=== PATIENT | male | born 1970 | race Caucasian/White ===

== ENCOUNTER 2021-03-14 12:18 | Outpatient (REF) | payer OTHER, SELFPAY ==
[2021-03-14 14:38] LABS: Alanine Aminotransferase 30 U/L (0-40); Albumin Level 4.8 g/dL (3.5-5.0); Alkaline Phosphatase 59 U/L (39-117); Anion Gap 14 (12-20); Aspartate Amino Transferase 20 U/L (5-37); Bilirubin Total 0.5 mg/dL (0.0-1.0); Blood Urea Nitrogen 15 mg/dL (9-16); Calcium 9.9 mg/dL (8.4-10.2); Carbon Dioxide 26 mmol/L (22-29); Chloride 105 mmol/L (96-108); Cholesterol 224 mg/dL; Estimated Glomerular Filt Rate > 60; Glucose Fasting 98 mg/dL (60-99); HDL Cholesterol 40 mg/dL; LDL Cholesterol Calculated 134 mg/dl; Potassium 4.4 mmol/L (3.3-5.1); Sodium 141 mmol/L (135-145); Total Protein 7.2 g/dL (6.5-8.0); Triglycerides 253 mg/dL
[2021-03-14 14:40] LABS: Prostate Specific Antigen Scr 0.49 ng/mL (<0.05-4.0); TSH reflex Free T4 1.06 uIU/mL (0.32-4.0)
== END 2021-03-14 12:19 | disposition home or self-care (01) ==
LOC: HO.HMGCLDS 12:18
PROVIDERS: PCP Nurse Practitioner Family; Visit Provider Nurse Practitioner Family
DX: Z00.00 Encounter for general adult medical examination without abnormal findings (principal); Z12.5 Encounter for screening for malignant neoplasm of prostate
CPT/HCPCS: 36415; 80053; 80061; 84153; 84443

== ENCOUNTER 2022-12-04 14:56 | Outpatient (AMB) | payer OTHER, SELFPAY ==
--- NOTE | 2022-12-04 14:58 | A.OFFVIS_ITS ---
Intake Vital Signs 12/04/22 14:59 Height 5 ft 8 in Weight 275 lb BMI 41.8 BP 139/76 Blood Pressure Location Rt brachial Position Sitting Pulse 82 Intake Visit Reasons: Colonoscopy screening Intake Note: Patient presents to in office visit today as new patient for colonoscopy screening. CC: Patient denies having any GI issues today. 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 He is referred by Rashi Tran of [facility] primary care. PMX High cholesterol Right knee pain and swelling Chronic back problems arthralgias * SURGICAL HISTORY Wrist surgery for ulnar tendonopathy Tonsil and adenoids L4-L5 back surgery * ALLERGIES: NKDA * [place] LABS: none since 2020 TODAY'S VISIT This is his first colonoscopy. He denies bowel or upper GI pronblms. There are no prior problems with anesthesia or sedation. He has a history of a positive PPD and positive but no active respiratory problems. He denies any respiratory or cardiac problems. He is unsure of his FHX his father had multiple health problems and he will be sending me documents. [facility] Surgical History H/O wrist surgery History of back surgery Hx of tonsillectomy Family History Mother Throat cancer Father Lupus Heart disease Cancer Social History Housing: House Patient Tobacco Use Status: Former Tobacco user Years Smoked: 35 years ago e-Cigarette/Vaping Use: Never Used Second Hand Smoke Exposure: No service: Yes Current occupational status: retired Cognitive needs: No Hearing needs: No Vision needs: No Review of Systems Const Denies fatigue, Denies fever(s), Denies night sweats, Denies poor appetite and Denies weight loss ENT Reports Normal hearing present, Denies dysphagia, Denies odynophagia, Denies throat swelling and Denies tongue swelling Card Reports no additional complaints Resp Reports cough GI Denies abdominal pain, Denies melena, Denies bloating, Denies hematochezia, Denies constipation, Denies GI cramping, Denies dysphagia, Denies excessive flatus, Denies early satiety, Denies heartburn, Denies diarrhea, Denies nausea, Denies odynophagia, Denies vomiting and Denies hematemesis Musc Reports back pain, Reports myalgias, Reports arthralgias and Reports stiffness Skin/Breast Denies pruritus, Denies lesions, Denies rash and Denies jaundice Neuro Reports Normal hearing present and Denies Abnormal speech present Endo Denies fatigue Aller/Immun Denies throat swelling and Denies tongue swelling Physical Exam Vital Signs: Last Vital Signs Pulse 82 12/04/22 14:59 BP 139/76 12/04/22 14:59 BMI result Body Mass Index 41.8 Const General: cooperative, no acute distress, well developed and well groomed Nutritional Appearance: well nourished and obese morbidly obese Orientation/consciousness: oriented to person, oriented to place and oriented to time Limitations: No language barrier HEENT Head: Yes normocephalic and Yes atraumatic Eyes General: appearance normal, both eyes and all related structures Pupils: Equal, round and reactive pupils present Neck Neck: Yes normal visual inspection and Yes no lymphadenopathy Thyroid: Thyroid normal Resp Effort & Inspection: normal respiratory effort and able to speak in complete sentences Auscultation: clear to auscultation bilaterally Cardio Rate: regular rate Rhythm: regular rhythm Heart sounds: Normal, physiologic split S2 sound present Peripheral pulses: radial pulses present and posterior tibial pulses present GI Inspection: No distended, Yes Abdominal panniculus present, Yes obesity and No scar Palpation (GI): Soft to palpation, nontender, no guarding, not rigid and No hepatosplenomegaly present Percussion: Yes normal to percussion Auscultation: normal bowel sounds Rectal Exam - Male: Yes deferred Skin General skin exam: no rashes or lesions noted, turgor normal, skin not dry, no jaundice, No spider nevi and no striae Rashes: no rashes Nails: normal Neuro General: oriented to person, oriented to place and oriented to time Cranial nerves: Yes Equal, round and reactive pupils present and Yes Normal hearing present Speech: No Abnormal speech present Extrem General: Yes normal to inspection, No clubbing, No cyanosis and No edema Psych Appearance: grossly normal and well kempt Mental Status: mental status grossly normal Speech and movement: Normal speech and movement present Affect: normal affect Attitude: cooperative Thought process: Normal thought process present and not confabulating Thought content: Normal thought content present Insight: Limited insight present (Psych) Judgement: Limited judgement present (Psych) Assessment & Plan Assessment & Plan (1) Pre-op examination: Code(s): Z01.818 - Encounter for other preprocedural examination Plan: This is his first colonoscopy. He denies bowel or upper GI pronblms. There are no prior problems with anesthesia or sedation. He has a history of a positive PPD and positive but no active respiratory problems. He denies any respiratory or cardiac problems. He is unsure of his FHX his father had multiple health problems and he will be sending me documents. Orders: Orders Comprehensive Met. Panel 12/04/22 Z01.818 - Encounter for other preprocedural examination Complete Blood Count Auto Diff 12/04/22 Z01.818 - Encounter for other preprocedural examination Colonoscopy - GI Use Only 12/04/22 Medications: New sod sulf-pot chloride-mag sulf 1.479-0.188- 0.225 gram (Sutab) PO PER PKG DIR 24 tabs 0RF Z01.818 - Encounter for other preprocedural examination Coding Level of Care Code New Pt Level 3 (19132) Diagnoses Pre-op examination Z01.818
[2022-12-04 14:59] VITALS: BP 139/76; PULSE 82; BMI 41.8
== END 2022-12-04 15:41 | disposition home or self-care (01) ==
PROVIDERS: PCP Nurse Practitioner Family; Visit Provider Nurse Practitioner
DX: Z01.818 Encounter for other preprocedural examination (principal); Z12.11 Encounter for screening for malignant neoplasm of colon
CPT/HCPCS: 99203; S0285

== ENCOUNTER → 2022-12-04 14:56 | Outpatient (BNVA) | payer OTHER, SELFPAY | PROVIDERS: PCP Nurse Practitioner Family; Visit Provider Nurse Practitioner ==

== ENCOUNTER 2022-12-06 08:50 | Outpatient (REF) | payer OTHER, SELFPAY | END 2022-12-06 08:51 | disposition home or self-care (01) | LOC: HO.MRI 08:50 | PROVIDERS: Visit Provider Nurse Practitioner Family | DX: Z13.89 Encounter for screening for other disorder (principal) ==

== ENCOUNTER 2023-01-15 09:44 | Outpatient (REF) | payer OTHER, MEDICARE, SELFPAY | END 2023-01-15 09:45 | disposition home or self-care (01) | LOC: HO.HOSX 09:44 | PROVIDERS: Visit Provider Orthopaedic Surgery | DX: M25.561 Pain in right knee (principal) | CPT/HCPCS: 73562; 99202 ==

== ENCOUNTER 2023-01-15 12:53 | Outpatient (AMB) | payer OTHER, SELFPAY ==
--- NOTE | 2023-01-15 13:16 | MHC.OFFVIS ---
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 The patient states that he injured his right knee approximately 2 years ago while skiing. He twisted his knee and had acute onset of pain. Since that time his symptoms have gotten worse in spite of continued non operative treatments. He has done physical therapy for 12 weeks over the last 6 months which aggravated his pain. He has also tried Tylenol and anti-inflammatory medicines which gave him minimal relief. He has had injections in the past which gave him no relief. The patient states that his right knee will give out several times per day. Allergies No Known Allergies Allergy (Verified 01/15/23 13:25) Medication List - Last Reconciled 01/15/23 by Nehemias Freire MD albuterol sulfate 90 mcg/actuation 2 puffs inhalation Q6H PRN 30 days sod sulf-pot chloride-mag sulf 1.479-0.188- 0.225 gram (Sutab) PO PER PKG DIR PFSH Surgical History H/O wrist surgery History of back surgery Hx of tonsillectomy Family History Mother Throat cancer Father Lupus Heart disease Cancer Social History Housing: House Patient Tobacco Use Status: Former Tobacco user Years Smoked: 35 years ago e-Cigarette/Vaping Use: Never Used Second Hand Smoke Exposure: No service: Yes Current occupational status: retired Cognitive needs: No Hearing needs: No Vision needs: No Physical Exam Vital Signs: BMI result Body Mass Index 41.8 Const Other: Well-nourished well-developed very friendly male awake alert and oriented x3 in no acute distress Extrem Other: Bilateral lower extremity examination shows good capillary refill, no skin lesions noted, normal sensation light touch Right knee examination shows a minimal effusion, minimal crepitus with range of motion, tenderness along his medial joint line, positive Stacey's test, no instability Results Reviewed Results Reviewed: X-rays of the patient's right knee show mild diffuse joint space narrowing, no acute bony abnormalities MRI of the patient's right knee shows mild diffuse degenerative changes as well as a tear of the medial meniscus and thickened plica Assessment & Plan Assessment & Plan (1) Right knee pain: Code(s): M25.561 - Pain in right knee Plan Mr. Ames presents with progressively worsening right knee pain mechanical symptoms due to early degenerative joint disease as well as a tear of his medial meniscus and plica syndrome. I had a lengthy discussion with the patient regarding the treatment options. At this point he has failed continued non operative treatments. The risks and benefits of right knee arthroscopic surgery were discussed at length with the patient. The patient wishes to proceed with surgery. He does understand that he may not get complete relief of his symptoms depending on the severity of his degenerative changes. Surgery will most likely involve right knee diagnostic arthroscopy with arthroscopic partial medial meniscectomy. I will have my office contact the patient to pick a surgery date. He will follow-up as instructed. Feel free to call me at any time should questions regarding his orthopedic management arise. Thank you very much for asking me to see this very friendly gentleman. I spent 22 minutes in reviewing the patient's records and imaging studies, seeing the patient and documenting in the medical record. Orders: Orders XR knee RT 3V 01/15/23 M25.561 - Pain in right knee Coding Level of Care Code New Pt Level 2 (28578) Diagnoses Right knee pain M25.561
[2023-01-15 13:17] VITALS: BMI 41.8
== END 2023-01-15 13:51 | disposition home or self-care (01) ==
PROVIDERS: PCP Nurse Practitioner Family; Visit Provider Orthopaedic Surgery
DX: M25.561 Pain in right knee (principal)
CPT/HCPCS: 99202

== ENCOUNTER 2023-02-22 08:05 | Day surgery (SDC) | payer OTHER, SELFPAY ==
[2023-02-20 10:38] VITALS: BMI 41.8
--- NOTE | 2023-02-21 08:49 | HO.ANESPROP2 ---
Documented by User: Jocelyn Barker NP 02/21/23 08:49 HPI - Anesthesia Eval Consult details Narrative: 52yo M for Right Knee Arthroscopy with partial medial meniscectomy, possible lateral meniscectomy PMFSH Active Problems Active Problems: All Active Problems (Updated 02/20/23 @ 10:36 by Radha Nunez RN) Patellofemoral arthralgia of right knee (Acute) Pre-op examination (Acute) Swelling of knee joint, right (Acute) Right knee pain (Acute) Screening for colon cancer (Acute) Dyslipidemia (Acute) Encounter for screening for lower gastrointestinal disorder (Acute) Screening PSA (prostate specific antigen) (Acute) Physical exam (Acute) Past Medical History Medical History (Updated 02/20/23 @ 10:36 by Radha Nunez RN) Elevated cholesterol Family History Family History Mother Throat cancer Father Lupus Heart disease Cancer Surgical History Surgical History History of back surgery H/O wrist surgery Hx of tonsillectomy Social History Social History Housing: House Patient Tobacco Use Status: Former Tobacco user Years Smoked: 35 years ago e-Cigarette/Vaping Use: Never Used Second Hand Smoke Exposure: No Use of substances other than those prescribed or required for medical reasons: Yes Are you DNR?: No Advance Directives: No Advance Directives Information Provided: Yes Advance Directives on File: No service: Yes Current occupational status: retired Cognitive needs: No Hearing needs: No Vision needs: No Meds Allergies Allergy/AdvReac Type Severity Reaction Status Date / Time No Known Allergies Allergy Verified 01/15/23 13:25 Active Medications: Current Medications Cefazolin Sodium/Dextrose (Ancef) 2 gm in 50 mls @ 100 mls/hr IV PREOP ONE Stop: 02/22/23 04:33 Exam Exam Date and Time: February 21, 2023 0849 Height,Weight and Vital Signs: Height 5 ft 8 in Weight 124.738 kg Assessment and Plan Assessment Anesthesia Assessment: Chart Reviewed Documented by User: Carlos Allen MD 02/22/23 09:52 PMFSH Past Medical History Medical History (Updated 02/20/23 @ 10:36 by Radha Nunez RN) Elevated cholesterol Family History Family History Mother Throat cancer Father Lupus Heart disease Cancer Family history of problems with anesthesia: No Surgical History Surgical History History of back surgery H/O wrist surgery Hx of tonsillectomy History of Problems with Anesthesia: No Social History Social History Housing: House Patient Tobacco Use Status: Former Tobacco user Years Smoked: 35 years ago e-Cigarette/Vaping Use: Never Used Second Hand Smoke Exposure: No Use of substances other than those prescribed or required for medical reasons: Yes Are you DNR?: No Advance Directives: No Advance Directives Information Provided: Yes Advance Directives on File: No service: Yes Current occupational status: retired Cognitive needs: No Hearing needs: No Vision needs: No Meds Allergies Allergy/AdvReac Type Severity Reaction Status Date / Time No Known Allergies Allergy Verified 01/15/23 13:25 Exam Airway Mallampati Class: III TM Dist: >3cm Neck ROM: Limited Heart: rrr Lungs: cta Assessment and Plan Assessment Anesthesia Assessment: Anesthesia Plan Discussed Final Anesthetic Review Family History of Problems with Anesthesia: No History of Problems with Anesthesia: No NPO: Yes ASA Class: III Final Preanesthetic Review: No Changes in Pt Med Stat, Meds/Allgs Chart Reviewed, Consent Obtained/Reviewed and Anes Risks/Benef Reviewed Patient Risk: Intermediate Procedure Risk: Intermediate Anesthetic Plan Anesthetic Plan: GA and Agree w/ Assess. and Plan Disposition: Standard PACU
[2023-02-22] VITALS (7 sets, daily range): BP systolic 128–156; BP diastolic 86–95; PULSE 69–78; RESP 16–18; TEMP 36.9–37.1; O2SAT 93–97
[2023-02-22] MEDS: Lactated Ringers 1,000 ML 100 ML IVCONT (09:53)
--- NOTE | 2023-02-22 12:04 | P.BOP_ITS ---
Brief Operative Note Date of Service: 02/22/23 Pre-op diagnosis: Right knee medial meniscus tear, right knee degenerative joint disease, right knee plica syndrome Post-op diagnosis: same Procedure: Right knee diagnostic arthroscopy with right knee arthroscopic partial medial meniscectomy, right knee arthroscopic chondroplasty of the undersurface of the patella, right knee arthroscopic plica excision Surgeon: Nehemias Freire MD Anesthesia: GLMA Was an Water Treatment Specialist used for this Procedure?: No Estimated blood loss (mL): 10 Pathology: none sent Condition: stable Disposition: PACU
--- NOTE | 2023-02-22 12:05 | P.OP_ITS ---
Operative Note Operative Note Date of Service: 02/22/23 Narrative: After the patient was identified as Rolando Ames and his right knee was initialed by myself they were brought to the operating room where general anesthesia was induced by the anesthesiologist in routine fashion. The patient was given 2 g of IV Ancef for infection prophylaxis. A formal time-out was completed. The patient's right lower extremity was prepped and draped in sterile fashion. Marcaine with epinephrine was injected into the planned incision sites as well as their left knee joint. A # 11 scalpel blade was used to make an anterolateral portal 1 cm proximal to the joint line and 1 cm lateral to the patellar tendon. Blunt trocar technique was used into the suprapatellar pouch with the knee in extension. Diagnostic arthroscopy showed multiple bands of thickened plica which would be excised at the end of the procedure. There were no loose bodies or abnormalities found in either the medial or lateral gutters. There were diffuse grade 2 degenerative changes of the undersurface of the patella as well as grade 1 degenerative changes of the trochlear groove. The patient's knee was flexed to 45 degrees and a valgus force was placed upon it. The medial compartment was entered. An anteromedial portal was made 1 cm proximal to the joint line and 1 cm medial to the patellar tendon. Probing of the medial meniscus showed a radial tear of the anterior horn. A partial medial meniscectomy was performed using the arthroscopic shaver. Following the partial meniscectomy the remainder of the meniscus tissue was stable. There were diffuse grade 1 degenerative changes of the medial femoral condyle as well as diffuse grade 1 degenerative changes of the medial tibial plateau. The patient's knee was then placed into a neutral position. There was no injury to the anterior cruciate ligament. The patient's knee was then placed into the figure of 4 position and the lateral compartment was entered. There were minimal degenerative changes of the lateral femoral condyle and lateral tibial plateau. There was no evidence of lateral meniscus tearing. The patient's knee was once again brought into extension and the suprapatellar pouch was entered. The arthroscopic shaver and the ArthroCare Wand were used to excise the thickened bands of plica. The undersurface of the patella was then made smooth using the arthroscopic shaver. The knee joint was irrigated and then drained. All arthro scopic instruments were removed. The 2 portals were closed with 3-0 nylon interrupted suture. The knee joint was injected with Marcaine. Dry sterile dressing and Mike bandages were placed over the patient's knee. The patient was woken and expand the operating room. They were transferred to the recovery room in stable condition.
[2023-02-22] MEDS: cefTRIAXone sodium 1 GM in 0.9 % Sodium Chloride 50 ML IV (12:10)
== END 2023-02-22 13:30 | disposition home or self-care (01) ==
PROVIDERS: PCP Nurse Practitioner Family; Visit Provider Orthopaedic Surgery
PROC: (CPT 29870; principal; 2023-02-22 09:50)
DX: S83.241A Other tear of medial meniscus, current injury, right knee, initial encounter (principal); M25.361 Other instability, right knee; M25.561 Pain in right knee; M67.51 Plica syndrome, right knee; M17.11 Unilateral primary osteoarthritis, right knee; Z79.899 Other long term (current) drug therapy; X50.1XXA Overexertion from prolonged static or awkward postures, initial encounter; Y93.23 Activity, snow (alpine) (downhill) skiing, snowboarding, sledding, tobogganing and snow tubing; Y92.9 Unspecified place or not applicable; Y99.8 Other external cause status; Z98.890 Other specified postprocedural states; Z87.891 Personal history of nicotine dependence
CPT/HCPCS: 29881; J0131; J0171; J0690; J0696; J1100; J1170; J2405; J2704; J2795

== ENCOUNTER → 2023-02-22 08:05 | Outpatient (BNV) | payer OTHER, SELFPAY | PROVIDERS: PCP Nurse Practitioner Family; Visit Provider Orthopaedic Surgery | DX: S83.231A Complex tear of medial meniscus, current injury, right knee, initial encounter (principal); M17.11 Unilateral primary osteoarthritis, right knee; M67.51 Plica syndrome, right knee | CPT/HCPCS: 29881 ==

== ENCOUNTER 2023-03-06 12:56 | Outpatient (AMB) | payer OTHER, SELFPAY ==
--- NOTE | 2023-03-06 13:02 | A.OFFVIS_ITS ---
Intake Intake Visit Reasons: PO-Rt Knee 02/22 Intake Note: Rolando johnson 52 year old male presents today for a post operative right knee , DOS 02/22/23 . Patient reports when he went to sit down last night not realizing he bent his knee underneath him and heard a pop. He currently is having a lot of discomfort. Allergies No Known Allergies Allergy (Verified 03/06/23 13:10) HPI PO-Rt Knee 02/22 HPI Details 52-year-old male who [facility] for post-op right knee , 02/22/[address] Freire. He reports he unknowingly bent his knee underneath him when he went to sit down last night and heard a pop. He currently states he has a chronic discomfort in his knee. He has no other concerns today. [facility] Medical History (Updated 02/20/23 @ 10:36 by Radha Nunez RN) Elevated cholesterol Surgical History History of back surgery H/O wrist surgery Hx of tonsillectomy Family History Mother Throat cancer Father Lupus Heart disease Cancer Housing: House Patient Tobacco Use Status: Former Tobacco user Years Smoked: 35 years ago e-Cigarette/Vaping Use: Never Used Second Hand Smoke Exposure: No service: Yes Current occupational status: retired Cognitive needs: No Hearing needs: No Vision needs: No Review of Systems Const All systems reviewed & are unremarkable except as noted in HPI and below Physical Exam Extrem Other: Right knee: Incision clean, dry and intact. No erythema or joint effusion. ROM is 5-95 degrees. Calf supple, nontender. NVI. Results Reviewed Results Reviewed: Brief Operative Note Date of Service: 02/22/23 Pre-op diagnosis: Right knee medial meniscus tear, right knee degenerative joint disease, right knee plica syndrome Post-op diagnosis: same Procedure: Right knee diagnostic arthroscopy with right knee arthroscopic partial medial meniscectomy, right knee arthroscopic chondroplasty of the undersurface of the patella, right knee arthroscopic plica excision Surgeon: Nehemias Freire MD Assessment & Plan Assessment & Plan (1) Patellofemoral arthralgia of right knee: Code(s): M25.561 - Pain in right knee (2) H/O meniscectomy of right knee: Code(s): Z98.890 - Other specified postprocedural states Plan Sutures removed today, steri strips applied. He will increase activity as tolerated. I did encourage him to avoid high impact activities for another 6 weeks. He was interested in physical therapy to improve his motion and strength. He will see us back in [address] Freire soonparth if needed. Orders: Orders PT Evaluation and Treatment 03/06/23 M25.561 - Pain in right knee, Z98.890 - Other specified postprocedural states Patient Instructions: Scribed for Brooks Hidalgo PA-C, by Da Fink medical and scientific illustrator, on 03/06/2023 at 1:00 PM EST. Brooks Ward PA-C, have personally reviewed and agree with the information entered by the scribe. Coding Level of Care Code Global (53203) Diagnoses Patellofemoral arthralgia of right knee M25.561 H/O meniscectomy of right knee Z98.890
== END 2023-03-06 13:51 | disposition home or self-care (01) ==
PROVIDERS: PCP Nurse Practitioner Family; Visit Provider Physician Assistant
DX: M25.561 Pain in right knee (principal); Z98.890 Other specified postprocedural states
CPT/HCPCS: 99024

== ENCOUNTER → 2023-03-06 12:56 | Outpatient (BNVA) | payer OTHER, SELFPAY | PROVIDERS: PCP Nurse Practitioner Family; Visit Provider Physician Assistant ==

== ENCOUNTER 2023-03-20 13:23 | Outpatient (AMB) | payer OTHER, SELFPAY ==
--- NOTE | 2023-03-20 13:25 | A.OFFVIS_ITS ---
Intake Intake Visit Reasons: PO-Rt Knee 02/22 Intake Note: Rolando johnson 52 year old male presents today for a post operative right knee , 02/22/23 . He reports mild intermittent discomfort in his right knee. He denies any fevers or chills. He is due to start physical therapy next week. Allergies No Known Allergies Allergy (Verified 03/20/23 13:25) Medication List - Last Reconciled 03/20/23 by Nehemias Freire MD albuterol sulfate 90 mcg/actuation 2 puffs inhalation Q6H PRN 30 days oxycodone 5 mg PO Q6H PRN PFSH Medical History (Updated 02/20/23 @ 10:36 by Radha Nunez RN) Elevated cholesterol Surgical History (Reviewed 03/06/23 @ 13:10 by Malu Kelley [facility]) History of back surgery H/O wrist surgery Hx of tonsillectomy Family History Mother Throat cancer Father Lupus Heart disease Cancer Social History Housing: House Patient Tobacco Use Status: Former Tobacco user Years Smoked: 35 years ago e-Cigarette/Vaping Use: Never Used Second Hand Smoke Exposure: No service: Yes Current occupational status: retired Cognitive needs: No Hearing needs: No Vision needs: No Physical Exam Extrem Other: Right knee examination shows that the surgical incisions are well healed, no erythema, minimal discomfort with range of motion, minimal crepitus with range of motion, no instability Assessment & Plan Assessment & Plan (1) Right knee pain: Code(s): M25.561 - Pain in right knee Plan: Mr. Ames continues to do well after undergoing right knee arthroscopic surgery. He will continue with his exercise program. He will begin physical therapy next week as scheduled. Activity modifications were discussed at length with the patient. He will contact me prior to his follow-up appointment in 2 months should any questions or concerns arise. Feel free to call me at any time should questions regarding his orthopedic management arise. Coding Level of Care Code Global (70424) Diagnoses Right knee pain M25.561
== END 2023-03-20 13:49 | disposition home or self-care (01) ==
PROVIDERS: PCP Nurse Practitioner Family; Visit Provider Orthopaedic Surgery
DX: M25.561 Pain in right knee (principal)
CPT/HCPCS: 99024

== ENCOUNTER → 2023-03-20 13:23 | Outpatient (BNVA) | payer OTHER, SELFPAY | PROVIDERS: PCP Nurse Practitioner Family; Visit Provider Orthopaedic Surgery | DX: M25.561 Pain in right knee (principal) | CPT/HCPCS: 99212 ==

== ENCOUNTER 2023-04-03 13:00 | Outpatient (RCR) | payer OTHER, SELFPAY ==
--- NOTE | 2023-03-21 14:42 | MHC.PT.EP ---
[facility] [place] Office [place] Office [place] Office [address] Sen Gama [address] [phone] F: [phone] F: [phone] F: [phone] F: [phone] Physical Therapy Plan of Care Date of Evaluation: 03/21/23 Date of Surgery: 02/22/2023 Diagnosis: pain in R knee Assessment: Patient is a 52 year old male presenting to PT s/p R knee 02/22/2023. He presents today with impairments in pain, ROM, knee strength, hip strength. Pt's current occupation is retired - , with baseline physical activities including ADLs, ambulating, stair negotiation. 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 Clinical presentation today is most consistent with signs and sx associated with R knee 02/22/2023 and pt will benefit from skilled PT 2 week x 4 weeks to address the following problems and impairments noted upon evaluation: pain, ROM, knee strength, hip strength. These problems limit the patient with the following functional activities: ADLs, ambulating, stair negotiation. The prescribed treatment plan of care is medically necessary. Co-morbidities of n/a were identified and taken into considerations of plan of care. Pt was educated on HEP, role of PT, prognosis, POC. Frequency and Duration: The patient will be seen 2 x week x 4 weeks Short Term Goals: Pt will demonstrate improved R knee ROM equal B in 2 weeks. Pt will demonstrate R knee MMT strength of 5/5 in 2 weeks. Pt will demonstrate improved hip MMT strength by 1/3 grade in 2 weeks for improved lumbopelvic stability. Supervisor Patching Goals: Pt will demonstrate improved LEFI score by 9 points in 4 weeks for improved functional mobility. Pt will demonstrate ability to ambulate with min to no pain or antalgia in 4 weeks for improved access to the community. Pt will demonstrate ability to negotiate stairs with min to no pain and proper sequencing in 4 weeks for improved access to his home. Treatment Plan: Modalities to reduce pain, spasms and effusion. Manual therapy to restore motion and function. Therapeutic exercise to improve strength and flexibility. Neuromuscular re-education for posture and balance. Therapeutic activities to return to functional activities of daily living. Electronically signed by: Stephanie Guzman, PT, DPT, ATC Please sign and return to therapist. Thank you for your referral.
--- NOTE | 2023-04-22 09:02 | MHC.PT.DC ---
[facility] [place] Office [place] Office [place] Office [address] Sen Gama [address] [phone] F: [phone] F: [phone] F: [phone] F: [phone] Physical Therapy Discharge Report Diagnosis: pain in R knee Date of Surgery: 02/22/2023 Date of Evaluation: 03/21/23 Date of Discharge: 04/22/23 Treatments to Date: 3 Cancellations to Date: 3 No Shows to Date: 1 Discharge Status: Patient Elected to Stop Discharge Summary: Pt cancelled all of his remaining appointments. Pt to be d/c per his request. Electronically signed by: Stephanie Guzman, PT, DPT, ATC Please sign and return to therapist. Thank you for your referral.
== END 2023-04-22 09:03 | disposition home or self-care (01) ==
LOC: HO.PTCHIC 13:00
PROVIDERS: PCP Nurse Practitioner Family; Visit Provider Physician Assistant
DX: M25.561 Pain in right knee (principal); Z98.890 Other specified postprocedural states
CPT/HCPCS: 97110; 97112; 97161

== ENCOUNTER 2023-05-23 13:15 | Outpatient (AMB) | payer OTHER, SELFPAY ==
--- NOTE | 2023-05-23 13:16 | MHC.OFFVIS ---
Intake Vital Signs 05/23/23 13:28 Height 5 ft 8 in Weight 250 lb BMI 38.0 Intake Visit Reasons: PO-Rt Knee 02/22 DR-follow up Intake Note: Rolando is a 52 year old male who presents for a post operative appointment s/p Right knee 02/22/2023 DR. Patient reports that his knee feels good and he is no longer going to physical therapy. He denies any fevers or chills. Today is most concerned with progressively worsening low back pain which radiates down his right leg. The patient states that his symptoms have gotten worse over the last 5 years. Did undergo low back surgery approximately 8 years ago while stationed in [employer]. Prior to that surgery he had pain radiating down his left leg. The patient states that his current pain radiates down his right leg to his right foot. He has had physical therapy as well as massage therapy which gave him minimal relief. He has also tried Tylenol and anti-inflammatory medicines which gave him minimal relief. He also reports intermittent weakness in his right leg. Allergies No Known Allergies Allergy (Verified 05/23/23 13:31) PFSH Medical History Elevated cholesterol Surgical History History of back surgery H/O wrist surgery Hx of tonsillectomy Family History Mother Throat cancer Father Lupus Heart disease Cancer Social History Housing: House Patient Tobacco Use Status: Former Tobacco user Years Smoked: 35 years ago e-Cigarette/Vaping Use: Never Used Second Hand Smoke Exposure: No service: Yes Current occupational status: retired Cognitive needs: No Hearing needs: No Vision needs: No Physical Exam Vital Signs: BMI result Body Mass Index 38.0 Const Other: Well-nourished well-developed very friendly male awake alert and oriented x3 in no acute distress Back/Spine/Pelvis Other: Low back examination shows right-sided paraspinal muscle tenderness, pain with range of motion, positive straight leg raise test on the right at 70 degrees, 4/5 strength with testing of his right hip flexors and knee extensors when compared to 5/5 strength on his left side Extrem Other: Right knee examination shows that the surgical incisions are well healed, no erythema, full active extension and flexion to 120 degrees, minimal discomfort with range of motion, no crepitus with range of motion Assessment & Plan Assessment & Plan (1) Low back pain radiating to right leg: Code(s): M54.50 - Low back pain, unspecified; M79.604 - Pain in right leg (2) Right knee pain: Code(s): M25.561 - Pain in right knee Plan Mr. Ames continues to do well after undergoing right knee arthroscopic surgery on 02/22/2023. Does have progressively worsening low back pain which radiates down his right leg possibly due to lumbar stenosis or a disc herniation. Thus, I will send him for an MRI of his lumbar spine evaluation. I will see him back once the MRI is completed to discuss the findings and treatment options. Will contact me prior to that time should his symptoms worsen in any way. Feel free to call me at any time should questions regarding his orthopedic management arise. I spent 22 minutes in reviewing the patient's records and imaging studies, seeing the patient and documenting in the medical record. Orders: Orders MR lumbar spine wo con Today M54.50 - Low back pain, unspecified, M79.604 - Pain in right leg Coding Level of Care Code Est Pt Level 2 (42104) Diagnoses Low back pain radiating to right leg M54.50; M79.604 Right knee pain M25.561
[2023-05-23 13:28] VITALS: BMI 38.0
== END 2023-05-23 13:57 | disposition home or self-care (01) ==
PROVIDERS: PCP Nurse Practitioner Family; Visit Provider Orthopaedic Surgery
DX: M54.50 Low back pain, unspecified (principal); M79.604 Pain in right leg; M25.561 Pain in right knee
CPT/HCPCS: 99213

== ENCOUNTER → 2023-05-23 13:15 | Outpatient (BNVA) | payer OTHER, SELFPAY | PROVIDERS: PCP Nurse Practitioner Family; Visit Provider Orthopaedic Surgery | DX: Z47.89 Encounter for other orthopedic aftercare (principal); M54.50 Low back pain, unspecified; M79.604 Pain in right leg; M25.561 Pain in right knee | CPT/HCPCS: 99212 ==

== ENCOUNTER 2023-06-17 09:29 | Day surgery (SDC) | payer OTHER, MEDICARE, SELFPAY ==
--- NOTE | 2023-06-14 11:59 | HO.ANESPROP2 ---
HPI - Anesthesia Eval Consult details Narrative: 52yo M for Colonoscopy PMFSH Active Problems Active Problems: All Active Problems (Updated 05/23/23 @ 13:56 by Nehemias Freire MD) Low back pain radiating to right leg (Acute) H/O meniscectomy of right knee (Acute) Patellofemoral arthralgia of right knee (Acute) Pre-op examination (Acute) Swelling of knee joint, right (Acute) Right knee pain (Acute) Screening for colon cancer (Acute) Dyslipidemia (Acute) Encounter for screening for lower gastrointestinal disorder (Acute) Screening PSA (prostate specific antigen) (Acute) Physical exam (Acute) Past Medical History Medical History Elevated cholesterol Family History Family History Mother Throat cancer Father Lupus Heart disease Cancer Family history of problems with anesthesia: No Surgical History Surgical History History of back surgery H/O wrist surgery Hx of tonsillectomy History of Problems with Anesthesia: No Social History Social History Housing: House Patient Tobacco Use Status: Former Tobacco user Years Smoked: 35 years ago e-Cigarette/Vaping Use: Never Used Second Hand Smoke Exposure: No service: Yes Current occupational status: retired Cognitive needs: No Hearing needs: No Vision needs: No Meds Allergies Allergy/AdvReac Type Severity Reaction Status Date / Time No Known Allergies Allergy Verified 05/23/23 13:31 Assessment and Plan Assessment Anesthesia Assessment: Chart Reviewed Final Anesthetic Review Family History of Problems with Anesthesia: No History of Problems with Anesthesia: No
--- NOTE | 2023-06-17 10:08 | MHC.SHP ---
Pre-Procedural Eval Section A - 24 Hr Update-Section A only Date of Service: 06/17/23 The patient is an INPATIENT: No The patient has been examined within 24 hours of the surgical procedure. The History & Physical has been completed within 30 days and I have reviewed it.: No Section B - Complete if H&P > 30 days Chief Complaint: Colon cancer screening Relevant Family History (Specify if Yes): No Relevant Social History: Tobacco Use (former smoker) Present Medications: see Short Stay Collaborative assessment Medical History: Significant History (High cholesterol Right knee pain and swelling Chronic back problems arthralgias) History of Previous Operations: Relevant previous surgery/procedure and date(s) (H/O wrist surgery History of back surgery Hx of tonsillectomy) Allergies: Allergies Allergy/AdvReac Type Severity Reaction Status Date / Time No Known Allergies Allergy Verified 05/23/23 13:31 Review of Systems Sugical H&P ROS: Negative: Constitution, Cardiovascular, Respiratory and Gastrointestinal Exam Surgical H&P Exam: Normal: Heart, Normal: Lungs, Normal: Extremities and Normal: Abdomen Plan Diagnosis/Plan: Unchanged I have reviewed the history and physical and performed a pertinent physical examination on my patient. No changes have occurred unless specified. Time Spent With Patient Time: Total time managing care of this patient today ____ minutes.
[2023-06-17 10:42] VITALS: BP 114/82; PULSE 85; RESP 16; TEMP 36.8; O2SAT 95; BMI 42.4
--- NOTE | 2023-06-17 10:51 | P.OP_ITS ---
Operative Note Operative Note Date of Service: 06/17/23 Narrative: COLONOSCOPY TILL CECUM Pre-op diagnosis: Colon cancer screening, family history of colon polyps. Post-op diagnosis:? Diverticulosis, hemorrhoids Endoscopist:? Wesly Gardner MD Anesthesia:?MAC Consent: Indications for the procedure and potential complications of bleeding, perforation, reaction to medications and missed diagnosis were discussed with the patient and informed consent was obtained. Instrument: Olympus CF H 190 L variable stiffness adult colonoscope Monitoring: Vital signs and clinical assessment, intermittent blood pressure monitoring, continuous EKG monitoring, Pulse oximetry and Carbon Dioxide monitoring were done throughout the procedure. Please see anesthesia flowsheet. Colon withdrawl time was 17 minutes. Procedure: The patient was placed in the left lateral decubitis position and pre-procedure medications were administered. After a digital rectal examination of the ano-rectum, the video colonoscope was inserted into the rectum and advanced through the colon to the cecum. The colonoscope was slowly withdrawn in a retrograde panoramic fashion and the colon mucosa was carefully examined including a retroflexed view of the rectum. Findings and interventions are described below. Procedure Difficulty: Without difficulty Findings: Terminal Ileum: Not evaluated Cecum: Normal Ascending Colon: Normal Transverse Colon: Normal Descending Colon: Normal Sigmoid Colon: Moderate diverticulosis Rectum: Normal Ano-rectum: Moderate internal hemorrhoids Colon preparation: Good after some irrigation [place] Bowel Preparation Scale Right colon; 2 Transverse colon: 2 Left colon; 2 (0 = Unprepared colon segment with mucosa not seen due to solid stool that cannot be cleared. 1 = Portion of mucosa of the colon segment seen, but other areas of the colon segment not well seen due to staining, residual stool and/or opaque liquid. 2 = Minor amount of residual staining, small fragments of stool and/or opaque liquid, but mucosa of colon segment seen well. 3 = Entire mucosa of colon segment seen well with no residual staining, small fragments of stool or opaque liquid) Impression and Post Procedure Diagnosis: Colonoscopy Findings: No polyps were detected. Moderate diverticulosis seen in the sigmoid colon Moderate hemorrhoids on retroflexed exam. Plan: Pt has a FU appointment on 07/02/23 with Sravani Gonzalez NP Repeat Colonoscopy in 5 years (since pt is unsure regarding his Dad's health history). Above findings were reviewed with the patient and diverticulosis handouts were given in the discharge area.
[2023-06-17 11:19] VITALS: BP 124/76; PULSE 76; RESP 16; TEMP 36.7; O2SAT 94
[2023-06-17 11:34] VITALS: BP 121/85; PULSE 73; RESP 14; TEMP 36.2; O2SAT 97
== END 2023-06-17 12:37 | disposition home or self-care (01) ==
PROVIDERS: PCP Nurse Practitioner Family; Visit Provider Internal Medicine Gastroenterology
PROC: 0DJD8ZZ Inspection of Lower Intestinal Tract, Via Natural or Artificial Opening Endoscopic (ICD-10-PCS; CPT 45378; principal; 2023-06-17 10:50)
DX: Z12.11 Encounter for screening for malignant neoplasm of colon (principal); K57.30 Diverticulosis of large intestine without perforation or abscess without bleeding; K64.8 Other hemorrhoids; Z83.719 Family history of colon polyps, unspecified; E78.00 Pure hypercholesterolemia, unspecified; E66.01 Morbid (severe) obesity due to excess calories; Z68.41 Body mass index [BMI] 40.0-44.9, adult
CPT/HCPCS: G0105; J2250; J2704

== ENCOUNTER → 2023-06-17 09:29 | Outpatient (BNV) | payer OTHER, MEDICARE, SELFPAY | PROVIDERS: PCP Nurse Practitioner Family; Visit Provider Internal Medicine Gastroenterology | DX: Z12.11 Encounter for screening for malignant neoplasm of colon (principal); Z83.719 Family history of colon polyps, unspecified; K57.30 Diverticulosis of large intestine without perforation or abscess without bleeding; K64.8 Other hemorrhoids | CPT/HCPCS: 45378 ==

== ENCOUNTER 2023-07-02 13:01 | Outpatient (AMB) | payer OTHER, SELFPAY ==
--- NOTE | 2023-07-02 13:07 | A.OFFVIS_ITS ---
Intake Vital Signs 07/02/23 13:10 07/02/23 13:13 Height 5 ft 8 in Weight 275 lb 9.245 oz BMI 41.9 BP 160/100 H 150/92 H Blood Pressure Location Lt brachial Lt brachial Position Sitting Sitting Pulse 91 Intake Visit Reasons: s/p colon Intake Note: Rolando presents in the office as a follow up colonoscopy. CC: He is not having any concerns today Allergies No Known Allergies Allergy (Verified 07/02/23 13:11) HPI s/p colon HPI Details Assessment & Plan (1) Pre-op examination: Code(s): Z01.818 - Encounter for other preprocedural examination Plan: This is his first colonoscopy. He denies bowel or upper GI pronblms. There are no prior problems with anesthesia or sedation. He has a history of a positive PPD and positive but no active respiratory proble ms. He denies any respiratory or cardiac problems. He is unsure of his FHX his father had multiple health problems and he will be sending me documents. Orders: Orders Comprehensive Met. Panel 12/04/22 Z01.818 - Encounte r for other prepro cedural examinatio n Complete Blood Cou nt Auto Diff 12/04/22 Z01.818 - Encounte r for other prepro cedural examinatio n Colonoscopy - GI U se Only 12/04/22 Medications: New sod sulf-pot chlor farzad-mag sulf 1.479 -0.188- 0.225 gram (Sutab) PO PER PKG DIR 24 tabs 0RF Z01.818 - Encounte r for other prepro cedural examinatio n LABS: Not obtained COLONOSCOPY 06/17/23 Findings: Terminal Ileum: Not evaluated Cecum: Normal Ascending Colon: Normal Transverse Colon: Normal Descending Colon: Normal Sigmoid Colon: Moderate diverticulosis Rectum: Normal Ano-rectum: Moderate internal hemorrhoids Colon preparation: Good after some irrigation Impression and Post Procedure Diagnosis: Colonoscopy Findings: No polyps were detected. Moderate diverticulosis seen in the sigmoid colon Moderate hemorrhoids on retroflexed exam. Plan: Pt has a FU appointment on 07/02/23 with Sravani Gonzalez NP Repeat Colonoscopy in 5 years (since pt is unsure regarding his Dad's health history). TODAY'S VISIT The endoscopist is calling for 5 year repeat based on uncertain family history. Then he looks into his written FHX and there is indeed a family history or crc. The procedure was well tolerated. The results were explained and the patient is agreeable to the follow-up interval as stated. The bowel pattern has returned to normal. Education was provided to tell any 1st degree relatives about their findings to be sure that they are screened by age 45. Educated that they will be put on a recall list when it is time for their repeat scope but should they move out of state or away from the hospital they will need to remember along with their primary to repeat the procedure in a timely fashion to avoid any adverse complications. [facility] Medical History (Updated 07/02/23 @ 13:24 by NAVNEET West) Asthma Elevated cholesterol Surgical History (Updated 07/02/23 @ 13:24 by NAVNEET West) Hx of colonoscopy Hx of arthroscopy of right knee History of back surgery H/O wrist surgery Hx of tonsillectomy Family History Mother Throat cancer Father Lupus Heart disease Cancer Social History Housing: House Patient Tobacco Use Status: Former Tobacco user Years Smoked: 35 years ago e-Cigarette/Vaping Use: Never Used Second Hand Smoke Exposure: No service: Yes Current occupational status: retired Cognitive needs: No Hearing needs: No Vision needs: No Review of Systems Const Denies fatigue, Denies fever(s), Denies night sweats, Denies poor appetite and Denies weight loss ENT Reports Normal hearing present, Denies dental pain, Denies dysphagia, Denies hearing loss, Denies mouth pain, Denies odynophagia, Denies throat swelling, Denies tongue swelling and Reports other (Dentition adequate) Card Reports no additional complaints Resp Reports no additional complaints GI Details: Denies abdominal pain, Denies melena, Denies bloating, Denies hematochezia, Denies constipation, Denies GI cramping, Denies dysphagia, Denies excessive flatus, Denies early satiety, Denies heartburn, Denies diarrhea, Denies nausea, Denies odynophagia, Denies vomiting and Denies hematemesis Skin/Breast Denies pruritus, Denies lesions, Denies rash and Denies jaundice Neuro Reports Normal hearing present and Denies Abnormal speech present Endo Denies fatigue Aller/Immun Denies throat swelling and Denies tongue swelling Physical Exam Vital Signs: Last Vital Signs Pulse 91 07/02/23 13:10 BP 150/92 H 07/02/23 13:13 BMI result Body Mass Index 41.9 Const General: cooperative, no acute distress, well developed and well groomed Nutritional Appearance: well nourished and obese morbidly obese Orientation/consciousness: oriented to person, oriented to place and oriented to time Limitations: No language barrier HEENT Head: Yes normocephalic and Yes atraumatic Eyes General: appearance normal, both eyes and all related structures Pupils: Equal, round and reactive pupils present Neck Neck: Yes normal visual inspection and Yes no lymphadenopathy Thyroid: Thyroid normal Resp Effort & Inspection: normal respiratory effort and able to speak in complete sentences Auscultation: clear to auscultation bilaterally Cardio Rate: regular rate Rhythm: regular rhythm Heart sounds: Normal, physiologic split S2 sound present Peripheral pulses: radial pulses present and posterior tibial pulses present GI Inspection: No distended, Yes Abdominal panniculus present and Yes obesity Palpation (GI): Soft to palpation, nontender, no guarding, not rigid and No hepatosplenomegaly present Percussion: Yes normal to percussion Auscultation: normal bowel sounds Rectal Exam - Male: Yes deferred Skin General skin exam: no rashes or lesions noted, turgor normal, skin not dry, no jaundice, No spider nevi and no striae Rashes: no rashes Nails: normal Neuro General: oriented to person, oriented to place and oriented to time Cranial nerves: Yes Equal, round and reactive pupils present and Yes Normal hearing present Speech: No Abnormal speech present Extrem General: Yes normal to inspection, No clubbing, No cyanosis and No edema Psych Appearance: grossly normal and well kempt Mental Status: mental status grossly normal Speech and movement: Normal speech and movement present Affect: normal affect Attitude: cooperative Thought process: Normal thought process present and not confabulating Thought content: Normal thought content present Insight: Fair insight present (Psych) Judgement: Fair judgement present (Psych) Assessment & Plan Assessment & Plan (1) Family history of polyps in the colon: Comment: Actually, this is uncertain so were areas on the side caution Code(s): Z83.719 - Family history of colon polyps, unspecified Plan The endoscopist is calling for 5 year repeat based on uncertain family history. Then he looks into his written FHX and there is indeed a family history or crc. The procedure was well tolerated. The results were explained and the patient is agreeable to the follow-up interval as stated. The bowel pattern has returned to normal. Education was provided to tell any 1st degree relatives about their findings to be sure that they are screened by age 45. Educated that they will be put on a recall list when it is time for their repeat scope but should they move out of state or away from the hospital they will need to remember along with their primary to repeat the procedure in a timely fashion to avoid any adverse complications. Coding Level of Care Code Est Pt Level 3 (35826) Diagnoses Family history of polyps in the colon Z83.719
[2023-07-02 13:10] VITALS: BP 160/100; PULSE 91; BMI 41.9
[2023-07-02 13:13] VITALS: BP 150/92
== END 2023-07-02 13:34 | disposition home or self-care (01) ==
PROVIDERS: PCP Nurse Practitioner Family; Visit Provider Nurse Practitioner
DX: Z83.719 Family history of colon polyps, unspecified (principal)
CPT/HCPCS: 99213

== ENCOUNTER → 2023-07-02 13:01 | Outpatient (BNVA) | payer OTHER, SELFPAY | PROVIDERS: PCP Nurse Practitioner Family; Visit Provider Nurse Practitioner | DX: Z09 Encounter for follow-up examination after completed treatment for conditions other than malignant neoplasm (principal); Z83.719 Family history of colon polyps, unspecified; Z98.890 Other specified postprocedural states | CPT/HCPCS: 99212 ==

== ENCOUNTER 2023-12-31 15:00 | Outpatient (AMB) | payer OTHER, SELFPAY ==
--- NOTE | 2023-12-31 15:05 | A.OFFPC_ITS ---
Vital Signs 12/31/23 15:10 Height 5 ft 8 in Weight 290 lb BMI 44.1 BP 130/82 Blood Pressure Location Rt brachial Position Sitting Pulse 88 Pulse Source Pulse Oximeter Pulse Oximetry (%) 98 Oxygen Delivery Method Room Air Intake Visit Reasons: asthma Intake Note: Patient here for Asthma f/u. Allergies No Known Allergies Allergy (Verified 12/31/23 15:10) Medication List - Last Reconciled 12/31/23 by LUIZ Hayward albuterol sulfate 90 mcg/actuation 2 puffs inhalation Q6H PRN 30 days Tobacco use date assessed: 12/31/23 Dental Screening Dental Screen Date: 12/31/23 HPI asthma HPI Details Pt is here for a PE. Will order labs. Colon screen is up to date. Due for PSA, will order. Denies dribbling with urination, weak stream, and frequent nocturia. Pt's asthma is well-controlled with albuterol inhaler. PFSH Medical History Asthma Elevated cholesterol Surgical History Hx of colonoscopy Hx of arthroscopy of right knee History of back surgery H/O wrist surgery Hx of tonsillectomy Family History Mother Throat cancer Father Lupus Heart disease Cancer Social History Housing: House Patient Tobacco Use Status: Former Tobacco user Years Smoked: 35 years ago e-Cigarette/Vaping Use: Never Used Second Hand Smoke Exposure: No service: Yes Current occupational status: retired Cognitive needs: No Hearing needs: No Vision needs: No Questionnaire PHQ-9 Over the last 2 weeks, how often have you been bothered by any of the following problems? 1. Little interest or pleasure in doing things: nearly every day 2. Feeling down, depressed, or hopeless: nearly every day 3. Trouble falling or staying asleep, or sleeping too much: nearly every day 4. Feeling tired or having little energy: nearly every day 5. Poor appetite or overeating: nearly every day 6. Feeling bad about yourself - or that you are a failure or have let yourself or your family down: nearly every day 7. Trouble concentrating on things, such as reading the newspaper or watching television: nearly every day 8. Moving or speaking so slowly that other people could have noticed. Or the opposite - being so fidgety or restless that you have been moving around a lot more than usual: nearly every day 9. Thoughts that you would be better off or of hurting yourself in some way: nearly every day Total score: 27 Depression Screening Interpretation: Positive (has a therapist, denies any si or hi) Depression Screening Follow-up: Existing condition Depression Screening Done: Yes 50082 - PHQ-9 Billing: Yes Source: Developed by Drs. Missael Dickey, Joy Corbin, Wayne Gayle and colleagues, with an educational elsa from [employer]. Thrive Questionnaire Date Thrive assessed: 12/29/23 I am a: Patient What is your living situation today?: I have a steady place to live Within the past 12 months, did the food you bought not last and you didn't have the money to get more?: Never true Within the past 12 months, did you worry whether your food would run out before you got money to buy more?: Never true Do you have trouble paying for medicines?: Yes Do you have trouble getting transportation to medical appointments?: No Do you have trouble paying your heating and electricity bill?: No Do you have trouble taking care of your child, family member or friend?: No Do you have trouble with day-to-day activities such as bathing, preparing meals, shopping, managing finances, etc.?: No Are you interested in more education?: No Please select the resources that you would like help with: None Currently or been in a relationship where the following occur: I choose not to answer THRIVE Score: 0 AUDIT C Alcohol Use Questionnaire (AUDIT-C) 1. How often do you have a drink containing alcohol?: Monthly or less 2. How many drinks containing alcohol do you have on a typical day when you are drinking?: 1 or 2 3. How often do you have six or more drinks on one occasion?: Less than monthly Total Score: 2 CHERIE-7 AMB Questionnaire CHERIE-7 Date CHERIE - 7 assessed: 03/01/21 Feeling nervous, anxious, or on edge: 3 = Nearly every day Not being able to stop or control worryin = Nearly every day Worrying too much about different things: 3 = Nearly every day Trouble relaxin = Nearly every day Being so restless that it is hard to sit still: 3 = Nearly every day Becoming easily annoyed or irritable: 3 = Nearly every day Feeling afraid as if something awful might happen: 3 = Nearly every day Total CHERIE-7 score (0-4 normal; 5-9 mild; 10-14 moderate; 15-21 severe): 21 Source: Developed by Drs. Missael Dickey, Joy Corbin, Wayne Gayle and colleagues, with an educational elsa from [employer]. CHERIE-7 Assessment Billing CHERIE-7 Assessment Tool: CHEREI-7 Assessment 04207 (has a therapist, denies any si or hi) Review of Systems Const Denies chills and Denies fever(s) Eyes Denies blurry vision ENT Denies vertigo, Denies dizziness and Denies sore throat Card Denies chest pain at rest, Denies chest pain with activity, Denies diaphoresis, Denies dyspnea and Denies dyspnea on exertion Resp Denies cough, Denies dyspnea, Denies dyspnea on exertion and Denies wheezing GI Denies abdominal pain, Denies melena, Denies hematochezia, Denies constipation, Denies diarrhea and Denies loose stools Denies hematuria Musc Denies numbness and Denies tingling Skin/Breast Denies lesions Neuro Denies vertigo, Denies dizziness, Denies numbness and Denies tingling Psych Denies anxiety, Denies depression, Denies homicidal ideation, Denies suicidal ideation and Denies other (substance abuse) Aller/Immun Denies wheezing Physical exam (Primary Care) Vital Signs: Last Vital Signs Pulse 88 12/31/23 15:10 BP 130/82 12/31/23 15:10 Pulse Ox 98 12/31/23 15:10 Oxygen Delivery Method Room Air 12/31/23 15:10 BMI result Body Mass Index 44.1 Tobacco/Smoking Status: Tobacco use Status Tobacco use date assessed 12/31/23 12/31/23 15:13 Patient Tobacco Use Status Former Tobacco user 12/31/23 15:09 e-Cigarette/Vaping Use Never Used 12/31/23 15:09 PHQ-9: PHQ-9 Score PHQ-9: Total score 27 12/31/23 15:34 Depression Screening Interpretation: Positive (has a therapist, denies any si or hi) Depression Screening Follow-up: Existing condition Thrive Assessment: Date of Thrive Assessment Date Thrive assessed 12/29/23 12/31/23 15:09 Currently or been in a relationship where the following occur: I choose not to answer Const General: cooperative Nutritional Appearance: obese morbidly obese Orientation/consciousness: patient oriented x3 HENMT Head: Yes normal to inspection, Yes normocephalic and Yes atraumatic Ears: TM's normal bilaterally Eyes General: appearance normal, both eyes and all related structures Alignment and Position: alignment normal and position normal Neck Neck: Yes normal visual inspection, Yes no lymphadenopathy and Yes supple Resp Effort & Inspection: normal respiratory effort Auscultation: clear to auscultation bilaterally Cardio Rate: regular rate Rhythm: regular rhythm Heart sounds: S1 normal heart sound present and S2 normal heart sound present GI Palpation (GI): Soft to palpation and nontender Auscultation: normal bowel sounds Male General Exam: Yes normal external exam Penis: normal penis Scrotum: scrotum normal, testes descended bilaterally and no inguinal hernias Testes: no testicular mass Skin Rashes: no rashes Neuro General: patient oriented x3 Romberg Test: Negative Psych Appearance: grossly normal Mental Status: mental status grossly normal Speech and movement: Normal speech and movement present Affect: normal affect Attitude: cooperative Thought process: Normal thought process present Thought content: Normal thought content present Insight: Good insight present (Psych) Judgement: Good judgement present (Psych) Assessment and Plan Assessment & Plan (1) Encounter for routine adult physical exam with abnormal findings: Code(s): Z00.01 - Encounter for general adult medical examination with abnormal findings Plan: Labs ordered (2) Screening PSA (prostate specific antigen): Code(s): Z12.5 - Encounter for screening for malignant neoplasm of prostate Plan: PSA ordered Plan The patient agreed to the use of a bilingual medical assistant for this encounter. Scribed for LUIZ Xie by adelfo Espinoza scribe, on 12/31/2023 at 15:20 EST. Orders: Orders Complete Blood Count Auto Diff Today Z00.01 - Encounter for general adult m edical examination with abnormal findings Comprehensive [place]. Panel Fast Today Z00.01 - Encounter for general adult medical examination with abnormal findings UA CC w/rflx Micro + Cult Today Z00.01 - Encounter for general adult medical examination with abnormal findings Lipid Panel Today Z00.01 - Encounter for general adult medical examination with abnormal findings TSH reflex Free T4 Today Z00.01 - Encounter for general adult medical examination with abnormal findings Prostate Specific Antigen Scr Today Z12.5 - Encounter for screening for malignant neoplasm of prostate Medications: Refilled albuterol sulfate 90 mcg/actuation 2 puffs inhalation Q6H 30 days PRN 6.7 grams 9RF shortness of breath or wheezing albuterol sulfate 90 mcg/actuation 2 puffs inhalation Q6H 30 days PRN 6.7 grams 9RF shortness of breath or wheezing Coding Level of Care Code Est Pt Level 3 (20495) Diagnoses Encounter for routine adult physical exam with abnormal findings Z00. Screening PSA (prostate specific antigen) Z12.5 Additional Codes CHERIE-7 Assessment Billing - CHERIE-7 Assessment Tool: CHERIE-7 Assessment 63382 ([id number])
[2023-12-31 15:10] VITALS: BP 130/82; PULSE 88; O2SAT 98; BMI 44.1
== END 2023-12-31 15:46 | disposition home or self-care (01) ==
PROVIDERS: PCP Nurse Practitioner Family; Visit Provider Nurse Practitioner Family
DX: Z00.01 Encounter for general adult medical examination with abnormal findings (principal); Z12.5 Encounter for screening for malignant neoplasm of prostate

== ENCOUNTER → 2023-12-31 15:00 | Outpatient (BNVA) | payer OTHER, SELFPAY | PROVIDERS: PCP Nurse Practitioner Family; Visit Provider Nurse Practitioner Family | DX: Z00.01 Encounter for general adult medical examination with abnormal findings (principal); J45.909 Unspecified asthma, uncomplicated; E78.5 Hyperlipidemia, unspecified | CPT/HCPCS: 96127; 99212 ==

== ENCOUNTER 2024-06-30 13:51 | Outpatient (REF) | payer OTHER, SELFPAY ==
[2024-06-30 16:18] LABS: MANUAL DIFF FLAG NO
[2024-06-30 17:17] LABS: Alanine Aminotransferase 45 U/L (0-40); Albumin Level 4.6 g/dL (3.5-5.0); Alkaline Phosphatase 69 U/L (39-117); Anion Gap 13 (12-20); Aspartate Amino Transferase 26 U/L (5-37); Bilirubin Total 0.3 mg/dL (0.0-1.0); Blood Urea Nitrogen 12 mg/dL (9-16); Calcium 9.7 mg/dL (8.4-10.2); Carbon Dioxide 23 mmol/L (22-29); Chloride 110 mmol/L (96-108); Cholesterol 189 mg/dL (<200); Estimated Glomerular Filt Rate > 60; Glucose Fasting 113 mg/dL (60-99); HDL Cholesterol 36 mg/dL (>40); LDL Cholesterol Calculated 132 mg/dL (<100); Potassium 4.2 mmol/L (3.3-5.1); Sodium 142 mmol/L (135-145); Total Protein 7.8 g/dL (6.5-8.0); Triglycerides 107 mg/dL (<150)
[2024-06-30 17:30] LABS: Basophils Percent Auto 0.4 % (0-2); Eosinophils Absolute Auto 0.1 X10*3/uL (0.0-0.4); Hematocrit 45.9 % (42.0-52.0); Hemoglobin 15.3 g/dl (14.0-18.0); Imm Gran Abs Auto 0.08 X10*3/uL (0.00-0.03); Lymphocytes Absolute Auto 2.5 X10*3/uL (1.2-4.9); Lymphocytes Percent Auto 32.9 % (20-40); Mean Corpuscular HGB Conc 33.3 g/dl (31.0-36.0); Mean Corpuscular Hemoglobin 28.8 pg (27.0-33.0); Mean Corpuscular Volume 86.4 fL (80.0-98.0); Mean Platelet Volume 10.8 fL (9.4-12.4); Monocytes Absolute Auto 0.7 X10*3/uL (0.1-1.2); Monocytes Percent Auto 9.6 % (2-11); Neutrophils Absolute Auto 4.2 x10*3/uL (2.0-8.3); Neutrophils Percent Auto 55.1 % (45-73); Platelet Count 349 X10*3/uL (160-400); Red Blood Count 5.31 X10*6/uL (4.60-5.80); Red Cell Distribution Width 13.2 % (11.0-16.0); White Blood Count 7.7 X10*3/uL (4.8-10.8)
[2024-06-30 17:31] LABS: Prostate Specific Antigen Scr 0.42 ng/mL (<0.05-4.0)
== END 2024-06-30 13:52 | disposition home or self-care (01) ==
LOC: HO.HMGCLDS 13:51
PROVIDERS: PCP Nurse Practitioner Family; Visit Provider Nurse Practitioner Family
DX: F41.9 Anxiety disorder, unspecified (principal); F32.A Depression, unspecified; E66.01 Morbid (severe) obesity due to excess calories; Z68.41 Body mass index [BMI] 40.0-44.9, adult; Z00.01 Encounter for general adult medical examination with abnormal findings; Z12.5 Encounter for screening for malignant neoplasm of prostate
CPT/HCPCS: 36415; 80053; 80061; 84153; 84443; 85025; 96127; 99212

== ENCOUNTER 2024-06-30 13:51 | Outpatient (AMB) | payer OTHER, SELFPAY ==
[2024-06-30 13:56] VITALS: BP 132/86; PULSE 94; TEMP 36.6; O2SAT 94; BMI 43.0
--- NOTE | 2024-06-30 13:56 | A.OFFPC_ITS ---
Vital Signs 06/30/24 13:56 Height 5 ft 8 in Weight 283 lb BMI 43.0 BP 132/86 Blood Pressure Location Lt brachial Position Sitting Pulse 94 Pulse Source Pulse Oximeter Temp 97.8 F Temp Source Oral Pulse Oximetry (%) 94 Oxygen Delivery Method Room Air Intake Visit Reasons: 6m follow up Intake Note: pt is here for 6 mon f.up Hat Copyist Required: No Accompanied by: Self / Same As Patient Allergies No Known Allergies Allergy (Verified 06/30/24 13:57) Medication List - Last Reconciled 06/30/24 by Rashi Tran [facility] albuterol sulfate 90 mcg/actuation 2 puffs inhalation Q6H PRN 30 days Tobacco use date assessed: 06/30/24 Dental Screening Dental Screen Date: 06/30/24 Did you have a dental visit in the last 12 months?: Yes Did you have a dental problem in the last 6 months where you did not have access to dental care?: No Was dental information given to patient?: Patient has dentist HPI 6m follow up HPI Details Chief Complaint Patient presents for a 6-month follow-up appointment. History of Present Illness The patient is a 53-year-old male presenting for a 6-month follow-up appointment. He reports no current respiratory, cardiovascular, or gastrointestinal complaints. HE denies any suicidal or homicidal ideation, and his psychiatric care is managed through the NH. The patient remains off psychiatric medications by choice at present. The patient is primarily focused on addressing his excessive weight, since he has been diagnosed with morbid obesity. He has initiated weight loss efforts through dietary adjustments and is planning to become more physically active, especially with favorable weather conditions. He has chosen not to pursue pharmacological options such as GLP-1 agonists at this time, although he is aware of this option. Social History - Patient is working on weight loss and dietary modification. - Patient intends to increase physical a ctivity with the arrival of warmer weather. Health Maintenance - Encouragement to obtain laboratory crow ts, as the patient is fasting today. Review of Systems - Respiratory System: Denies shortness o f breath. - Cardiovascular System: Denies chest pa in. - Gastrointestinal System: Denies abdomi nal pain, blood in stool, constipation, diarrhea. - Psychiatric System: Denies suicidal id eation, homicidal ideation. Physical Exam General: Cooperative, healthy appearing, comfortable, no acute distress and well developed. Morbid obesity noted. Orientation: Patient oriented x3 Limitations: No limitations Head: Normal to inspection Ears: Hearing grossly normal bilaterally Nose: Normal external nose present Face and sinus: Normal facial exam Eyes: Appearance normal, both eyes and all related structures Neck: Normal visual inspection and Yes full ROM Respiratory: Normal respiratory effort and able to speak in complete sentences. Clear to auscultation bilaterally Cardiovascular: Regular rate and rhythm. Normal S1 and S2 GI: Normal to inspection. Soft to palpation and nontender Skin: No rashes or lesions noted Neuro: Patient oriented x3 Extremities: Normal to inspection Results Plan During this visit, we discussed management strategies for the patient?s morbid obesity, focusing on lifestyle changes, including diet and increased physical activity, rather than pharmacological interventions for weight loss. Encouragingly, he has already lost 9 pounds. We also addressed the value of completing laboratory tests today. For his psychiatric disorder, he is under regular supervision at the NH and continues presently without medication by choice. Continuing follow-ups are planned as part of maintaining his health and ongoing management of his depression. Discussion Notes I spoke with the patient about his ongoing efforts and progress in weight management, emphasizing the benefits of lifestyle modifications for his morbid obesity. We considered GLP-1 agonists but agreed on postponing this option. I highlighted the importance of regular follow-ups to monitor his weight and overall health. For his psychiatric care, I reassured him of the [facility], respecting his decision against medication at present. We reviewed his fasting status and the need to complete laboratory tests today. I provided anticipatory guidance on extending efforts towards weight loss through increased activity. Patient Instructions - Continue dietary modification to promo te weight loss. - Increase physical activity as the weat her permits. - Complete laboratory tests today given fasting status. - Continue psychiatric follow-up at the NH. - Monitor weight changes regularly and f ollow up as needed. PFSH Medical History Asthma Elevated cholesterol Surgical History Hx of colonoscopy Hx of arthroscopy of right knee History of back surgery H/O wrist surgery Hx of tonsillectomy Family History Mother Throat cancer Father Lupus Heart disease Cancer Social History Housing: House Patient Tobacco Use Status: Former Tobacco user Years Smoked: 35 years ago e-Cigarette/Vaping Use: Never Used Second Hand Smoke Exposure: No service: Yes Current occupational status: retired Cognitive needs: No Hearing needs: No Vision needs: No Questionnaire PHQ-9 Over the last 2 weeks, how often have you been bothered by any of the following problems? 1. Little interest or pleasure in doing things: nearly every day 2. Feeling down, depressed, or hopeless: nearly every day 3. Trouble falling or staying asleep, or sleeping too much: nearly every day 4. Feeling tired or having little energy: nearly every day 5. Poor appetite or overeating: nearly every day 6. Feeling bad about yourself - or that you are a failure or have let yourself or your family down: nearly every day 7. Trouble concentrating on things, such as reading the newspaper or watching television: nearly every day 8. Moving or speaking so slowly that other people could have noticed. Or the opposite - being so fidgety or restless that you have been moving around a lot more than usual: nearly every day 9. Thoughts that you would be better off or of hurting yourself in some way: nearly every day Total score: 27 Depression Screening Interpretation: Positive (denies any SI or HI) Depression Screening Follow-up: Existing condition and In treatment Depression Screening Done: Yes 10618 - PHQ-9 Billing: Yes Source: Developed by Drs. Missael Dickey, Joy Corbin, Wanye Gayle and colleagues, with an educational elsa from [employer]. Thrive Questionnaire Date Thrive assessed: 06/30/24 I am a: Patient What is your living situation today?: I have a steady place to live Within the past 12 months, did the food you bought not last and you didn't have the money to get more?: Never true Within the past 12 months, did you worry whether your food would run out before you got money to buy more?: Never true Do you have trouble paying for medicines?: No Do you have trouble getting transportation to medical appointments?: No Do you have trouble paying your heating and electricity bill?: No Do you have trouble taking care of your child, family member or friend?: No Do you have trouble with day-to-day activities such as bathing, preparing meals, shopping, managing finances, etc.?: No Are you currently unemployed and looking for a job?: No Are you interested in more education?: No Please select the resources that you would like help with: None Currently or been in a relationship where the following occur: No concerns reported THRIVE Score: 0 AUDIT C Alcohol Use Questionnaire (AUDIT-C) 1. How often do you have a drink containing alcohol?: Never 3. How often do you have six or more drinks on one occasion?: Never Total Score: 0 Score Reviewed/Action Taken: Yes CHERIE-7 AMB Questionnaire CHERIE-7 Date CHERIE - 7 assessed: 06/30/24 Feeling nervous, anxious, or on edge: 3 = Nearly every day Not being able to stop or control worryin = Nearly every day Worrying too much about different things: 3 = Nearly every day Trouble relaxin = Nearly every day Being so restless that it is hard to sit still: 3 = Nearly every day Becoming easily annoyed or irritable: 3 = Nearly every day Feeling afraid as if something awful might happen: 3 = Nearly every day Total CHERIE-7 score (0-4 normal; 5-9 mild; 10-14 moderate; 15-21 severe): 21 Source: Developed by Drs. Missael Dickey, Joy Corbin, Wayne Gayle and colleagues, with an educational elsa from [employer]. CHERIE-7 Assessment Billing CHERIE-7 Assessment Tool: CHERIE-7 Assessment 39887 ([facility], denies any CP or SOB) Physical exam (Primary Care) Vital Signs: Last Vital Signs Temp 97.8 F 06/30/24 13:56 Pulse 94 06/30/24 13:56 BP 132/86 06/30/24 13:56 Pulse Ox 94 06/30/24 13:56 Oxygen Delivery Method Room Air 06/30/24 13:56 BMI result Body Mass Index 43.0 Tobacco/Smoking Status: Tobacco use Status Tobacco use date assessed 06/30/24 06/30/24 13:59 Patient Tobacco Use Status Former Tobacco user 06/30/24 13:59 e-Cigarette/Vaping Use Never Used 06/30/24 13:59 PHQ-9: PHQ-9 Score PHQ-9: Total score 27 06/30/24 13:59 Depression Screening Interpretation: Positive (denies any SI or HI) Depression Screening Follow-up: Existing condition and In treatment Thrive Assessment: Date of Thrive Assessment Date Thrive assessed 06/30/24 06/30/24 13:59 Currently or been in a relationship where the following occur: No concerns reported Coding Level of Care Code Est Pt Level 3 (16668) Diagnoses Anxiety and depression F41.9; F32.A Morbid obesity E66.01 Additional Codes PHQ-9 - 49178 - PHQ-9 Billing: Yes ([id number]) CHERIE-7 Assessment Billing - CHERIE-7 Assessment Tool: CHERIE-7 Assessment 11525 ([id number]) Assessment & Plan Assessment & Plan (1) Anxiety and depression: Code(s): F41.9 - Anxiety disorder, unspecified; F32.A - Depression, unspecified Category: Medical (2) Morbid obesity: Code(s): E66.01 - Morbid (severe) obesity due to excess calories Category: Medical Plan .
== END 2024-06-30 14:53 | disposition home or self-care (01) ==
LOC: HO.HMCC 13:52
PROVIDERS: PCP Nurse Practitioner Family; Visit Provider Nurse Practitioner Family
DX: F41.9 Anxiety disorder, unspecified (principal); F32.A Depression, unspecified; E66.01 Morbid (severe) obesity due to excess calories; Z68.41 Body mass index [BMI] 40.0-44.9, adult

== ENCOUNTER 2025-01-19 14:43 | Outpatient (AMB) | payer OTHER, SELFPAY ==
--- NOTE | 2025-01-19 14:46 | MHC.PC.OV ---
Vital Signs 01/19/25 14:48 01/19/25 15:38 Height 5 ft 8 in Weight 301 lb BMI 45.8 BP 142/86 H 124/80 Blood Pressure Location Lt brachial Position Sitting Pulse 94 Pulse Source Pulse Oximeter Pulse Oximetry (%) 97 Intake Visit Reasons: PE Nail Welter Required: No Allergies No Known Allergies Allergy (Verified 01/19/25 15:13) Medication List - [facility] sulfate 90 mcg/actuation 2 puffs inhalation Q6H PRN 30 days Tobacco use date assessed: 06/30/24 Dental Screening Dental Screen Date: 06/30/24 HPI PE HPI Details History of Present Illness The patient is a 54-year-old male presenting for a physical examination. The patient reports being morbidly obese despite engaging in regular exercise, including swimming and using a workout room throughout the summer. He has no history of pancreatitis or thyroid carcinoma, and the initiation of a GLP-1 agonist was discussed to aid in weight management. The patient experiences persistent right knee pain, which he manages by wearing a brace almost continuously. He has a history of a meniscal injury that was surgically repaired, but he continues to experience significant discomfort, likely exacerbated by his weight. Health Maintenance colon screen Social History - Exercise: Engages in regular physical activity, including swimming and using a workout room. Review of Systems - Cardiovascular: Denies chest pain. - Respiratory: Denies shortness of breath. - Gastrointestinal: Denies abdominal pain, blood in stool, constipation, and diarrhea. - Psychiatric: Denies suicidal and homicidal ideation; has regular psychiatric care. Physical Exam General: Cooperative, healthy appearing, comfortable, no acute distress and well developed, morbidly obese Orientation: Patient oriented x3 Limitations: Right knee pain, wears a brace almost 24/7 Head: Normal to inspection Ears: Hearing grossly normal bilaterally Nose: Normal external nose present Face and sinus: Normal facial exam Eyes: Appearance normal, both eyes and all related structures Neck: Normal visual inspection and Yes full ROM Respiratory: Normal respiratory effort and able to speak in complete sentences. Clear to auscultation bilaterally Cardiovascular: Regular rate and rhythm. Normal S1 and S2 GI: Normal to inspection. Soft to palpation and nontender : testicles without masses/lesions and no hernias appreciated Skin: No rashes or lesions noted Neuro: Patient oriented x3 Extremities: Normal to inspection, except for right knee brace Results Plan 1. Morbid Obesity The patient is advised to start a GLP-1 agonist to assist with weight management, given the lack of contraindications such as pancreatitis or thyroid carcinoma. The plan includes titrating the medication monthly to achieve optimal results. He further has a Hx of elevated Fasting blood Sugar and elevated liver enzymes. Highly recommend a trial of this class of medication 2. Right Knee Pain The patient continues to experience right knee pain, likely exacerbated by his weight, despite wearing a brace almost continuously. The history of a surgically repaired meniscal injury contributes to the ongoing discomfort. Discussion Notes I discussed with the patient the initiation of a GLP-1 agonist for weight management, explaining its mechanism of action and potential side effects. We agreed on a plan to titrate the medication monthly. Patient Instructions - Begin GLP-1 agonist therapy as discussed. - Wear knee brace as needed for support. [facility] Medical History Asthma Elevated cholesterol Surgical History Hx of colonoscopy Hx of arthroscopy of right knee History of back surgery H/O wrist surgery Hx of tonsillectomy Family History Mother Throat cancer Father Lupus Heart disease Cancer Social History Housing: House Patient Tobacco Use Status: Former Tobacco user Years Smoked: 35 years ago e-Cigarette/Vaping Use: Never Used Second Hand Smoke Exposure: No service: Yes Current occupational status: retired Cognitive needs: No Hearing needs: No Vision needs: No Questionnaire PHQ-9 Over the last 2 weeks, how often have you been bothered by any of the following problems? 1. Little interest or pleasure in doing things: nearly every day 2. Feeling down, depressed, or hopeless: nearly every day 3. Trouble falling or staying asleep, or sleeping too much: nearly every day 4. Feeling tired or having little energy: nearly every day 5. Poor appetite or overeating: nearly every day 6. Feeling bad about yourself - or that you are a failure or have let yourself or your family down: nearly every day 7. Trouble concentrating on things, such as reading the newspaper or watching television: nearly every day 8. Moving or speaking so slowly that other people could have noticed. Or the opposite - being so fidgety or restless that you have been moving around a lot more than usual: nearly every day 9. Thoughts that you would be better off or of hurting yourself in some way: nearly every day Total score: 27 Depression Screening Interpretation: Positive (denies any SI or HI, sees a psychiatrist and therapist) Depression Screening Follow-up: Existing condition and In treatment Depression Screening Done: Yes Source: Developed by Drs. Missael Dickey, Joy Corbin, Wayne Gayle and colleagues, with an educational elsa from [employer]. Thrive Questionnaire Date Thrive assessed: 06/28/24 I am a: Patient What is your living situation today?: I have a steady place to live Within the past 12 months, did the food you bought not last and you didn't have the money to get more?: Never true Within the past 12 months, did you worry whether your food would run out before you got money to buy more?: Never true Do you have trouble paying for medicines?: No Do you have trouble getting transportation to medical appointments?: No Do you have trouble paying your heating and electricity bill?: No Do you have trouble taking care of your child, family member or friend?: No Do you have trouble with day-to-day activities such as bathing, preparing meals, shopping, managing finances, etc.?: No Are you currently unemployed and looking for a job?: No Are you interested in more education?: No Please select the resources that you would like help with: None Currently or been in a relationship where the following occur: No concerns reported THRIVE Score: 0 AUDIT C Alcohol Use Questionnaire (AUDIT-C) 1. How often do you have a drink containing alcohol?: Never 3. How often do you have six or more drinks on one occasion?: Never Total Score: 0 CHERIE-7 AMB Questionnaire CHERIE-7 Date CHERIE - 7 assessed: 06/30/24 [facility] any CP or SOB) Feeling nervous, anxious, or on edge: 3 = Nearly every day Not being able to stop or control worryin = Nearly every day Worrying too much about different things: 3 = Nearly every day Trouble relaxin = Nearly every day Being so restless that it is hard to sit still: 3 = Nearly every day Becoming easily annoyed or irritable: 3 = Nearly every day Feeling afraid as if something awful might happen: 3 = Nearly every day Total CHERIE-7 score (0-4 normal; 5-9 mild; 10-14 moderate; 15-21 severe): 21 Source: Developed by Drs. Missael Dickey, Joy Corbin, Wayne Gayle and colleagues, with an educational elsa from [employer]. CHERIE-7 Assessment Billing CHERIE-7 Assessment Tool: CHERIE-7 Assessment 96343 (denies any si or hi) Physical exam (Primary Care) Vital Signs: Last Vital Signs Pulse 94 01/19/25 14:48 BP 142/86 H 01/19/25 14:48 Pulse Ox 97 01/19/25 14:48 BMI result Body Mass Index 45.8 Tobacco/Smoking Status: Tobacco use Status Tobacco use date assessed 06/30/24 01/19/25 14:48 Patient Tobacco Use Status Former Tobacco user 01/19/25 14:48 e-Cigarette/Vaping Use Never Used 01/19/25 14:48 PHQ-9: PHQ-9 Score PHQ-9: Total score 27 01/19/25 15:13 Depression Screening Interpretation: Positive (denies any SI or HI, sees a psychiatrist and therapist) Depression Screening Follow-up: Existing condition and In treatment Thrive Assessment: Date of Thrive Assessment Date Thrive assessed 06/28/24 01/19/25 14:48 Currently or been in a relationship where the following occur: No concerns reported Coding Level of Care Code Est Pt Prev Care 40-64y(31756) Diagnoses Encounter for routine adult physical exam with abnormal findings Z00.01 Screening PSA (prostate specific antigen) Z12.5 Additional Codes CHERIE-7 Assessment Billing - CHERIE-7 Assessment Tool: CHERIE-7 Assessment 58637 ([id number]) Assessment & Plan Assessment & Plan (1) Encounter for routine adult physical exam with abnormal findings: Code(s): Z00.01 - Encounter for general adult medical examination with abnormal findings Category: Medical (2) Screening PSA (prostate specific antigen): Code(s): Z12.5 - Encounter for screening for malignant neoplasm of prostate Category: Medical Plan . Orders: Orders Lipid Panel Today Z00.01 - Encounter for general adult medical examination with abnormal findings Prostate Specific Antigen Scr Today Z12.5 - Encounter for screening for malignant neoplasm of prostate Complete Blood Count Auto Diff Today Z00. - Encounter for general adult medical examination with abnormal findings Comprehensive [place]. Panel Fast Today Z00. - Encounter for general adult medical examination with abnormal findings TSH reflex Free T4 Today Z00. - Encounter for general adult medical examination with abnormal findings UA CC w/rflx Micro + Cult Today Z00. - Encounter for general adult medical examination with abnormal findings Medications: New tirzepatide (weight loss) (Zepbound) for 4 weeks 2.5 mg (0.5 mL) subcut QWEEK 2.5 mL 0RF 30 days
[2025-01-19 14:48] VITALS: BP 142/86; PULSE 94; O2SAT 97; BMI 45.8
[2025-01-19 15:38] VITALS: BP 124/80
== END 2025-01-19 16:32 | disposition home or self-care (01) ==
LOC: HO.HMCC 14:43
PROVIDERS: PCP Nurse Practitioner Family; Visit Provider Nurse Practitioner Family
DX: Z00.01 Encounter for general adult medical examination with abnormal findings (principal); Z12.5 Encounter for screening for malignant neoplasm of prostate

== ENCOUNTER → 2025-01-19 14:43 | Outpatient (BNVA) | payer OTHER, SELFPAY | PROVIDERS: PCP Nurse Practitioner Family; Visit Provider Nurse Practitioner Family | DX: Z00.01 Encounter for general adult medical examination with abnormal findings (principal); M25.561 Pain in right knee | CPT/HCPCS: 96127 ==